=== PATIENT | female | born 1960 ===

== ENCOUNTER 2020-07-09 08:04 | Outpatient (REF) | payer BC, SELFPAY ==
--- NOTE | 2020-07-09 08:12 | MM_ITS ---
EXAMINATION: MM SCREENING DIGITAL BREAST TOMOSYNTHESIS, BILATERAL CLINICAL INFORMATION: Screening. Asymptomatic. The lifetime risk of breast cancer based on the Tyrer-Cuzick Model is 9.4%. COMPARISON: Mammography: July 04, 2019 and studies dating back to April 28, 2011 TECHNIQUE: Digital breast tomosynthesis is performed in both the craniocaudal and mediolateral oblique views along with computer-aided detection (CAD). Synthesized 2D images are generated from the tomosynthesis. FINDINGS: There are scattered areas of fibroglandular density (ACR BI-RADS breast composition Category b). There is a stable parenchymal pattern of the right breast with no new abnormal dominant mass or suspicious grouping of microcalcifications. Within the superior anterior aspect of the left breast approximately 3 cm from the nipple within an area of previous architecture distortion there is a increased density for which a corresponding density on craniocaudal view is not identified however spot compression view in mediolateral oblique projection is recommended. IMPRESSION: Left breast density for further evaluation as described. ASSESSMENT: BI-RADS 0: Incomplete - Need Additional Imaging Evaluation RECOMMENDATION: 1. Additional views of the left breast 2. Targeted ultrasound if warranted after review of the additional views. 3. Radiology department staff will contact the patient for additional imaging. This patient's information was entered into a reminder system with a target due date for their next mammogram.
== END 2020-07-09 08:05 | disposition home or self-care (01) ==
LOC: HO.MAMMO 08:04
PROVIDERS: PCP Internal Medicine; Visit Provider Internal Medicine
DX: Z12.31 Encounter for screening mammogram for malignant neoplasm of breast (principal)
CPT/HCPCS: 77063; 77067

== ENCOUNTER 2020-07-14 15:00 | Outpatient (REF) | payer BC, SELFPAY ==
--- NOTE | 2020-07-14 15:18 | MM_ITS ---
EXAMINATION: MM DIAGNOSTIC DIGITAL BREAST TOMOSYNTHESIS, LEFT CLINICAL INFORMATION: Recall from screening for asymmetric density anterior upper left breast on MLO view. COMPARISON: Mammography: 07/09/2020, 07/04/2019, 06/12/2018, 05/02/2017, 08/07/2015 TECHNIQUE: Digital breast tomosynthesis is performed. 2D images are generated from the tomosynthesis. The following views are obtained: 3-D spot MLO, 3-D ML. FINDINGS: There are scattered areas of fibroglandular density (ACR BI-RADS breast composition Category b). The additional views show fibroglandular tissue similar to multiple prior studies. There is no developing density or interval architectural abnormality or mass. Results are discussed with the patient at time of visit. IMPRESSION: Additional views show fibroglandular tissue similar to multiple prior studies. ASSESSMENT: BI-RADS 1: Negative RECOMMENDATION: Routine annual mammography screening. This patient's information was entered into a reminder system with a target due date for their next mammogram.
== END 2020-07-14 15:01 | disposition home or self-care (01) ==
LOC: HO.MAMMO 15:00
PROVIDERS: PCP Internal Medicine; Visit Provider Internal Medicine
DX: R92.2 Inconclusive mammogram (principal)
CPT/HCPCS: 77065

== ENCOUNTER 2021-02-28 08:01 | Outpatient (REF) | payer BC, SELFPAY ==
[2021-02-28 12:10] LABS: Vitamin D 25-OH Total 42.2 ng/mL (>30)
[2021-02-28 12:15] LABS: Alanine Aminotransferase 53 U/L (0-31); Anion Gap 14 (12-20); Aspartate Amino Transferase 32 U/L (5-31); Blood Urea Nitrogen 15 mg/dL (9-16); Calcium 9.5 mg/dL (8.4-10.2); Carbon Dioxide 26 mmol/L (22-29); Chloride 104 mmol/L (96-108); Cholesterol 169 mg/dL; Estimated Glomerular Filt Rate > 60; Glucose Fasting 134 mg/dL (60-99); HDL Cholesterol 66 mg/dL; LDL Cholesterol Calculated 83 mg/dl; Potassium 4.1 mmol/L (3.3-5.1); Sodium 140 mmol/L (135-145); Triglycerides 101 mg/dL
[2021-02-28 13:13] LABS: Estimated Average Glucose 123 mg/dL; Hemoglobin A1c % 5.9 %
== END 2021-02-28 08:02 | disposition home or self-care (01) ==
LOC: HO.HMGCLDS 08:01
PROVIDERS: PCP Internal Medicine; Visit Provider Internal Medicine
DX: E78.2 Mixed hyperlipidemia (principal); R73.01 Impaired fasting glucose; Z78.0 Asymptomatic menopausal state
CPT/HCPCS: 36415; 80048; 80061; 82306; 83036; 84450; 84460

== ENCOUNTER 2021-07-27 12:20 | Outpatient (REF) | payer BC, SELFPAY ==
--- NOTE | ~2021-07-27 | MM_ITS ---
EXAMINATION: MM SCREENING DIGITAL BREAST TOMOSYNTHESIS, BILATERAL CLINICAL INFORMATION: Screening. Asymptomatic. The lifetime risk of breast cancer based on the Tyrer-Cuzick Model is 8%. COMPARISON: Mammography: 07/14/2020, 07/09/2020, 07/04/2019, 06/12/2018 TECHNIQUE: Digital breast tomosynthesis is performed in both the craniocaudal and mediolateral oblique views along with computer-aided detection (CAD). Synthesized 2D images are generated from the tomosynthesis. FINDINGS: There are scattered areas of fibroglandular density (ACR BI-RADS breast composition Category b). There are no significant masses, abnormal calcifications, or other abnormalities. There is a dermal lesion overlying the anterior upper outer left breast. MM/MM tomosynthesis screening BI IMPRESSION: No mammographic evidence of malignancy. ASSESSMENT: BI-RADS 2: Benign RECOMMENDATION: Routine annual mammography screening. This patient's information was entered into a reminder system with a target due date for their next mammogram.
== END 2021-07-27 12:21 | disposition home or self-care (01) ==
LOC: HO.MAMMO 12:20
PROVIDERS: Visit Provider Internal Medicine
DX: Z12.31 Encounter for screening mammogram for malignant neoplasm of breast (principal)
CPT/HCPCS: 77063; 77067

== ENCOUNTER 2021-08-11 08:13 | Outpatient (REF) | payer BC, SELFPAY ==
--- NOTE | ~2021-08-11 | XR_ITS ---
EXAMINATION: XR KNEE, RIGHT CLINICAL INFORMATION: Pain right knee COMPARISON: None TECHNIQUE: Four views of the right knee. FINDINGS: Bones and soft tissues are normal. There is no acute fracture, dislocation or loose bodies. There is minimal suprapatellar joint effusion suspected. Alignment is anatomic. Joint spaces are well maintained. No abnormal soft tissue calcification. XR/XR knee RT 4V IMPRESSION: Minimal suprapatellar joint effusion suspected. Otherwise unremarkable right knee exam.
== END 2021-08-11 08:14 | disposition home or self-care (01) ==
LOC: HO.HMGCX 08:13
PROVIDERS: PCP Internal Medicine; Visit Provider Internal Medicine
DX: M25.561 Pain in right knee (principal)
CPT/HCPCS: 73564

== ENCOUNTER 2022-01-09 06:12 | Outpatient (REF) | payer BC, SELFPAY ==
[2022-01-09 11:41] LABS: Alanine Aminotransferase 52 U/L (0-31); Anion Gap 13 (12-20); Aspartate Amino Transferase 29 U/L (5-31); Blood Urea Nitrogen 9 mg/dL (9-16); Carbon Dioxide 26 mmol/L (22-29); Chloride 107 mmol/L (96-108); Cholesterol 163 mg/dL; Estimated Glomerular Filt Rate > 60; Glucose Fasting 158 mg/dL (60-99); HDL Cholesterol 62 mg/dL; LDL Cholesterol Calculated 81 mg/dl; Potassium 4.1 mmol/L (3.3-5.1); Sodium 142 mmol/L (135-145); Triglycerides 103 mg/dL
[2022-01-09 12:06] LABS: Vitamin D 25-OH Total 51.1 ng/mL (>30)
== END 2022-01-09 06:13 | disposition home or self-care (01) ==
LOC: HO.HMGCLDS 06:12
PROVIDERS: Visit Provider Internal Medicine
DX: E78.5 Hyperlipidemia, unspecified (principal); I48.0 Paroxysmal atrial fibrillation; I10 Essential (primary) hypertension; Z83.49 Family history of other endocrine, nutritional and metabolic diseases
CPT/HCPCS: 36415; 80048; 80061; 82306; 84443; 84450; 84460

== ENCOUNTER 2022-05-17 08:01 | Outpatient (REF) | payer BC, SELFPAY ==
[2022-05-17 11:32] LABS: Estimated Average Glucose 126 mg/dL
[2022-05-17 12:05] LABS: Alanine Aminotransferase 51 U/L (0-31); Aspartate Amino Transferase 33 U/L (5-31); Cholesterol 138 mg/dL; Glucose Fasting 139 mg/dL (60-99); HDL Cholesterol 56 mg/dL; LDL Cholesterol Calculated 67 mg/dl; Triglycerides 77 mg/dL
== END 2022-05-17 08:02 | disposition home or self-care (01) ==
LOC: HO.HMGCLDS 08:01
PROVIDERS: PCP Internal Medicine; Visit Provider Internal Medicine
DX: E78.5 Hyperlipidemia, unspecified (principal); R73.01 Impaired fasting glucose; E66.9 Obesity, unspecified
CPT/HCPCS: 36415; 80061; 82947; 83036; 84450; 84460

== ENCOUNTER 2022-07-19 07:19 | Day surgery (SDC) | payer BC, SELFPAY ==
[2022-07-13 11:26] VITALS: BMI 36.2
--- NOTE | 2022-07-18 10:11 | HO.ANESPROP2 ---
Documented by User: Sheree Rolle NP 07/18/22 10:12 HPI - Anesthesia Eval Consult details Narrative: 61yo F for Colonoscopy PAF, no anticoag PMFSH Active Problems Active Problems: All Active Problems (Updated 03/01/22 @ 12:14 by Echo Gannon MD) Retinal tear of right eye (Acute) Upper respiratory tract infection (Acute) Posterior vitreous detachment of right eye (Acute) Obesity (Acute) Impaired fasting glucose (Acute) Right knee pain (Acute) Family history of thyroid disease in sister (Acute) Paroxysmal atrial fibrillation (Acute) Dyslipidemia (Acute) Past Medical History Medical History Dyslipidemia Family history of thyroid disease in sister Impaired fasting glucose Obesity Paroxysmal atrial fibrillation Posterior vitreous detachment of right eye Retinal tear of right eye Family History Family History Father No problems noted. Mother No problems noted. Surgical History Surgical History H/O eye surgery Hx of section Hx of wisdom tooth extraction Social History Social History Housing: House Alcohol intake: never Patient Tobacco Use Status: Former Tobacco user Years Smoked: 6 yrs e-Cigarette/Vaping Use: Never Used Second Hand Smoke Exposure: No Use of substances other than those prescribed or required for medical reasons: No Are you DNR?: No Advance Directives: No Advance Directives Information Provided: Yes Advance Directives on File: No service: No Current occupational status: employed Cognitive needs: No Hearing needs: No Vision needs: No Meds Allergies Allergy/AdvReac Type Severity Reaction Status Date / Time No Known Allergies Allergy Verified 05/18/22 13:56 Home Medications Medication Instructions Recorded Confirmed Last Taken Type cholecalciferol (vitamin D3) 50 50 mcg PO DAILY 03/01/21 03/01/21 Unknown History mcg (2,000 unit) capsule flecainide 100 mg tablet 100 mg PO BID 03/01/21 03/01/21 07/19/22 History metoprolol tartrate 50 mg tablet 50 mg PO BID 03/01/21 03/01/21 07/19/22 History cetirizine 10 mg tablet (Zyrtec) 10 mg PO DAILY PRN 05/18/22 Unknown History famotidine 20 mg tablet (Pepcid AC) 20 mg PO BEDTIME 05/18/22 Unknown History Exam Exam Date and Time: July 18, 2022 1011 Height,Weight and Vital Signs: Height 5 ft 2 in Weight 89.811 kg Assessment and Plan Assessment Anesthesia Assessment: Chart Reviewed Documented by User: Dayanara Villaseñor MD 07/19/22 08:26 [facility] Past Medical History Medical History Dyslipidemia Family history of thyroid disease in sister Impaired fasting glucose Obesity Paroxysmal atrial fibrillation Posterior vitreous detachment of right eye Retinal tear of right eye Family History Family History Father No problems noted. Mother No problems noted. Family history of problems with anesthesia: No Surgical History Surgical History H/O eye surgery Hx of section Hx of wisdom tooth extraction History of Problems with Anesthesia: No Social History Social History Housing: House Alcohol intake: never Patient Tobacco Use Status: Former Tobacco user Years Smoked: 6 yrs e-Cigarette/Vaping Use: Never Used Second Hand Smoke Exposure: No Use of substances other than those prescribed or required for medical reasons: No Are you DNR?: No Advance Directives: No Advance Directives Information Provided: Yes Advance Directives on File: No service: No Current occupational status: employed Cognitive needs: No Hearing needs: No Vision needs: No Meds Allergies Allergy/AdvReac Type Severity Reaction Status Date / Time No Known Allergies Allergy Verified 05/18/22 13:56 Home Medications Medication Instructions Recorded Confirmed Last Taken Type cholecalciferol (vitamin D3) 50 50 mcg PO DAILY 03/01/21 03/01/21 Unknown History mcg (2,000 unit) capsule flecainide 100 mg tablet 100 mg PO BID 03/01/21 03/01/21 07/19/22 History metoprolol tartrate 50 mg tablet 50 mg PO BID 03/01/21 03/01/21 07/19/22 History cetirizine 10 mg tablet (Zyrtec) 10 mg PO DAILY PRN 05/18/22 Unknown History famotidine 20 mg tablet (Pepcid AC) 20 mg PO BEDTIME 05/18/22 Unknown History Exam Airway Mallampati Class: II TM Dist: >3cm Neck ROM: Full Heart: rrr Lungs: cta Assessment and Plan Assessment Anesthesia Assessment: Anesthesia Plan Discussed and Chart Reviewed Final Anesthetic Review Family History of Problems with Anesthesia: No History of Problems with Anesthesia: No NPO: Yes ASA Class: II Final Preanesthetic Review: No Changes in Pt Med Stat, Meds/Allgs Chart Reviewed and Consent Obtained/Reviewed Patient Risk: Intermediate Procedure Risk: Intermediate Anesthetic Plan Anesthetic Plan: MAC: Disposition: Standard PACU
[2022-07-19 07:46] VITALS: BP 118/68; PULSE 57; RESP 16; TEMP 36.3; O2SAT 96
--- NOTE | 2022-07-19 08:28 | MHC.SHP ---
Pre-Procedural Eval Section A Date of Service: 07/19/22 Section B Chief Complaint: screening Details of Present Illness: 61y.o F with pAF here for screening colo. Relevant Family History (Specify if Yes): No Present Medications: see Short Stay Collaborative assessment Medical History: Significant History (pAF not on anticoagulation) History of Previous Operations: Relevant previous surgery/procedure and date(s) (H/O eye surgery Hx of section Hx of wisdom tooth extraction) Allergies: Allergies Allergy/AdvReac Type Severity Reaction Status Date / Time No Known Allergies Allergy Verified 05/18/22 13:56 Review of Systems Review of Systems Comment: 10 point ROS negative except as above Exam Exam Comment: Gen appear: No acute distress, well nourished HEENT: no icterus Chest: No overt resp distress Abd: soft, nontender, nondistended Psych: Stable affect, answering questions appropriately Neuro: A/Ox3 noted to move all extremities spontaneously Ext: no peripheral edema Plan Diagnosis/Plan: Unchanged I have reviewed the history and physical and performed a pertinent physical examination on my patient. No changes have occurred unless specified.
--- NOTE | 2022-07-19 09:09 | P.OP_ITS ---
Operative Note Operative Note Date of Service: 07/19/22 Narrative: Procedure: Colonoscopy Indication: Screening Endoscopist: Jenn Peters MD Anesthesia Provider: Dr Dayanara Johnosn Anesthesia type: MAC Instrument: Olympus [id number]-[id number] Consent: Indication, risks vs benefits, and alternatives were discussed with the patient who gave written informed consent to proceed. EKG, pulse, pulse oximetry and blood pressure were monitored throughout the procedure. Please see anesthesia flowsheet. Procedure: The patient was brought to the procedure room and placed in the left lateral decubitus position. IV medications were administered by the anesthesia provider in attendance. A digital rectal exam was performed which was normal. The colonoscope was then inserted through the anus and advanced through the colon to the cecum at 80 cm,and terminal ileum. Mucosa was carefully examined under high definition white light as the instrument was slowly withdrawn in a retrograde panoramic fashion. Retroflexion was performed in ascending colon and rectum. The procedure was not difficult. There were no immediate obvious complications. The quality of the prep was BBPS: 3+3+3 = excellent Withdrawal time 19 minutes. Limitations: No limitations. Findings: Mucosa: Normal to cecum and terminal ileum. Protruding lesions: * Medium internal hemorrhoids without stigmata of recent bleeding. Impression: 1. Normal colon and terminal ileum mucosa 2. Internal hemorrhoids Recommendations: - Repeat colonoscopy in 10 years. - Increase fiber intake - Sitz bath
[2022-07-19 09:15] VITALS: BP 103/58; PULSE 59; RESP 16; TEMP 36.4; O2SAT 96
[2022-07-19 09:30] VITALS: BP 117/69; PULSE 53; RESP 18; TEMP 36.1; O2SAT 96
== END 2022-07-19 10:13 ==
LOC: HO.SSS 07:20
PROVIDERS: PCP Internal Medicine; Visit Provider Internal Medicine
PROC: 0DJD8ZZ Inspection of Lower Intestinal Tract, Via Natural or Artificial Opening Endoscopic (ICD-10-PCS; CPT 45378; principal; 2022-07-19 08:30)
DX: Z12.11 Encounter for screening for malignant neoplasm of colon (principal); K64.8 Other hemorrhoids; I48.0 Paroxysmal atrial fibrillation; E78.5 Hyperlipidemia, unspecified; R73.01 Impaired fasting glucose; Z79.899 Other long term (current) drug therapy; Z87.891 Personal history of nicotine dependence
CPT/HCPCS: 45378

== ENCOUNTER 2022-08-16 07:45 | Outpatient (REF) | payer BC, SELFPAY ==
--- NOTE | ~2022-08-16 | MM_ITS ---
EXAMINATION: MM SCREENING DIGITAL BREAST TOMOSYNTHESIS, BILATERAL CLINICAL INFORMATION: Screening. Asymptomatic. The lifetime risk of breast cancer based on the Tyrer-Cuzick Model is 8%. COMPARISON: Mammography: 07/27/2021, 07/14/2020, 07/09/2020, 07/04/2019 TECHNIQUE: Digital breast tomosynthesis is performed in both the craniocaudal and mediolateral oblique views along with computer-aided detection (CAD). Synthesized 2D images are generated from the tomosynthesis. FINDINGS: There are scattered areas of fibroglandular density (ACR BI-RADS breast composition Category b). There are no significant masses, abnormal calcifications, or other abnormalities. Parenchymal pattern is similar to prior studies. There is no developing density or architectural abnormality. There is a dermal lesion again seen overlying the anterior upper outer left breast. The axilla are unremarkable. No significant changes. MM/MM tomosynthesis screening BI IMPRESSION: No mammographic evidence of malignancy. ASSESSMENT: BI-RADS 2: Benign RECOMMENDATION: Routine annual mammography screening. This patient's information was entered into a reminder system with a target due date for their next mammogram.
== END 2022-08-16 07:46 | disposition home or self-care (01) ==
LOC: HO.MAMMO 07:45
PROVIDERS: PCP Internal Medicine; Visit Provider Internal Medicine
DX: Z12.31 Encounter for screening mammogram for malignant neoplasm of breast (principal)
CPT/HCPCS: 77063; 77067

== ENCOUNTER → 2022-12-20 09:18 | Outpatient (BNVA) | payer BC, SELFPAY | PROVIDERS: PCP Internal Medicine; Visit Provider Nurse Practitioner Family | DX: Z13.89 Encounter for screening for other disorder (principal) ==

== ENCOUNTER 2023-01-23 08:34 | Outpatient (REF) | payer BC, SELFPAY ==
[2023-01-23 11:44] LABS: Estimated Average Glucose 134 mg/dL; Hemoglobin A1c % 6.3 %
[2023-01-23 12:00] LABS: Alanine Aminotransferase 45 U/L (0-31); Anion Gap 11 (12-20); Aspartate Amino Transferase 30 U/L (5-31); Blood Urea Nitrogen 12 mg/dL (9-16); Calcium 9.2 mg/dL (8.4-10.2); Carbon Dioxide 27 mmol/L (22-29); Chloride 103 mmol/L (96-108); Cholesterol 160 mg/dL; Estimated Glomerular Filt Rate > 60; Glucose Fasting 152 mg/dL (60-99); HDL Cholesterol 59 mg/dL; LDL Cholesterol Calculated 83 mg/dl; Potassium 4.1 mmol/L (3.3-5.1); Sodium 137 mmol/L (135-145); Triglycerides 93 mg/dL
== END 2023-01-23 08:35 | disposition home or self-care (01) ==
LOC: HO.HMGCLDS 08:34
PROVIDERS: PCP Internal Medicine; Visit Provider Internal Medicine
DX: E66.9 Obesity, unspecified (principal); R73.01 Impaired fasting glucose; E78.5 Hyperlipidemia, unspecified
CPT/HCPCS: 36415; 80048; 80061; 83036; 84450; 84460

== ENCOUNTER 2023-04-23 07:58 | Outpatient (AMB) | payer BC, SELFPAY ==
--- NOTE | 2023-04-23 07:59 | AM.OFFWIN_ITS ---
Intake Vital Signs 04/23/23 08:02 BP 120/82 Blood Pressure Location Rt brachial Position Sitting Pulse 60 Pulse Source Pulse Oximeter Pulse Oximetry (%) 98 Oxygen Delivery Method Room Air Intake Visit Reasons: EST/dizziness Intake Note: Patient here because she has had a couple dizzy spells yesterday. she states she woke up yesterday dizzy and it sort of went away and then she bent down and got dizzy again. 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 Patient Tobacco Use Status: Former Tobacco user Allergies No Known Allergies Allergy (Verified 04/23/23 08:19) Do you need a note to return to daycare/school/sports/work: No HPI EST/dizziness HPI Details See intake history. PFSH Medical History Dyslipidemia Family history of thyroid disease in sister Impaired fasting glucose Obesity Paroxysmal atrial fibrillation Posterior vitreous detachment of right eye Retinal tear of right eye Surgical History H/O eye surgery Hx of section Hx of colonoscopy Hx of wisdom tooth extraction Family History Father No problems noted. Mother No problems noted. Social History Housing: House Alcohol intake: never Patient Tobacco Use Status: Former Tobacco user Years Smoked: 6 yrs e-Cigarette/Vaping Use: Never Used Second Hand Smoke Exposure: No service: No Current occupational status: employed Cognitive needs: No Hearing needs: No Vision needs: Yes Physical Exam Vital Signs: Last Vital Signs Pulse 60 04/23/23 08:02 BP 120/82 04/23/23 08:02 Pulse Ox 98 04/23/23 08:02 Oxygen Delivery Method Room Air 04/23/23 08:02 Const General: cooperative and healthy appearing Nutritional Appearance: well nourished Orientation/consciousness: patient oriented x3 Limitations: no limitations HEENT Head: Yes normal to inspection Eyes General: appearance normal, both eyes and all related structures Neck Neck: Yes normal visual inspection Chest Chest palpation & inspection: normal palpation of entire chest wall Resp Effort & Inspection: normal respiratory effort Neuro General: patient oriented x3 Assessment & Plan Assessment & Plan (1) Dizziness: Code(s): R42 - Dizziness and giddiness Plan: Self-limiting illness. Patient was reassured that it is not AFib. Coding Level of Care Code Est Pt Level 3 (59664) Diagnoses Dizziness R42
[2023-04-23 08:02] VITALS: BP 120/82; PULSE 60; O2SAT 98
== END 2023-04-23 08:14 | disposition home or self-care (01) ==
PROVIDERS: PCP Internal Medicine; Visit Provider Internal Medicine
DX: R42 Dizziness and giddiness (principal)
CPT/HCPCS: 99213

== ENCOUNTER 2023-07-04 08:45 | Outpatient (AMB) | payer BC, SELFPAY ==
--- NOTE | 2023-07-04 09:29 | AM.OFFWIN_ITS ---
Intake Vital Signs 07/04/23 09:31 Height 5 ft 2 in Weight 198 lb 6 oz BMI 36.3 BP 132/74 Blood Pressure Location Rt brachial Position Sitting Pulse 59 Pulse Source Pulse Oximeter Temp 98.9 F Temp Source Oral Pulse Oximetry (%) 97 Oxygen Delivery Method Room Air Intake Visit Reasons: EP-Lt eye blury vision, headaches Intake Note: Pt is here c/o left eye blurry vision. Pt states she does have retnia but it seemed to be different yesterday. 20/25 RA 20/15 LA Patient Tobacco Use Status: Former Tobacco user Allergies No Known Allergies Allergy (Verified 07/04/23 09:29) Do you need a note to return to daycare/school/sports/work: No HPI HPI Comments History of Present Illness Details This is a 62-year-old female with a past medical history of atrial fibrillation not currently anticoagulated, hyperlipidemia, previous right retinal detachment with residual floaters bilaterally, seasonal allergies and gastroesophageal reflux disease presenting from home for evaluation of a brief loss of vision in her left eye that she describes at the top 10% of her vision that occurred yesterday. Patient states this lasted for less than 3 minutes and now she has absolutely no visual deficits. Patient states that she does have residual floaters but has not experienced any flashes or shadowing and her vision bilaterally. Patient also complains of an intermittent posterior headache that started yesterday for which she was taking Advil. Patient denies having any lightheadedness, nausea, vomiting, abnormal heart rhythm, chest pain or shortness of breath. [facility] Medical History Retinal tear of right eye Posterior vitreous detachment of right eye Obesity Impaired fasting glucose Family history of thyroid disease in sister Paroxysmal atrial fibrillation Dyslipidemia Surgical History H/O eye surgery Hx of section Hx of colonoscopy Hx of wisdom tooth extraction Family History Father No problems noted. Mother No problems noted. Social History Housing: House Alcohol intake: never Patient Tobacco Use Status: Former Tobacco user Years Smoked: 6 yrs e-Cigarette/Vaping Use: Never Used Second Hand Smoke Exposure: No service: No Current occupational status: employed Cognitive needs: No Hearing needs: No Vision needs: Yes Review of Systems Const All systems reviewed & are unremarkable except as noted in HPI and below Denies fatigue, Reports headache(s) and Denies weakness Eyes Reports as per HPI, Reports loss of vision ( top 10% visual field left eye ), Denies seeing flashes and Denies photophobia ENT Reports no additional complaints and Reports headache(s) Resp Reports no additional complaints GI Reports no additional complaints Musc Reports no additional complaints Neuro Reports no additional complaints, Reports headache(s), Reports loss of vision ( top 10% visual field left eye ) and Denies weakness Endo Denies fatigue Physical Exam Vital Signs: Last Vital Signs Temp 98.9 F 07/04/23 09:31 Pulse 59 07/04/23 09:31 BP 132/74 07/04/23 09:31 Pulse Ox 97 07/04/23 09:31 Oxygen Delivery Method Room Air 07/04/23 09:31 BMI result Body Mass Index 36.3 Const General: cooperative, healthy appearing, comfortable and no acute distress Nutritional Appearance: average body habitus Orientation/consciousness: patient oriented x3 Limitations: no limitations HEENT Head: Yes normal to inspection Ears: hearing grossly normal bilaterally, external ears normal and TM's normal bilaterally General nose exam: Normal external nose present Face and sinus: Yes normal facial exam and Yes face symmetric Mouth: Normal oral and palatal mucosa present and oropharynx normal Eyes General: appearance normal, both eyes and all related structures Visual Montejo: normal visual montejo by confrontation Alignment and Position: alignment normal Periorbital: periorbital findings normal Eyelids: Yes eyelids normal Conjunctivae: conjunctivae normal Sclerae: sclerae normal Corneas: corneas normal Pupils: Equal, round and reactive pupils present EOM: EOMs intact bilaterally Direct Ophthalmoscopy: normal light reflex, no photophobia, fundi normal bilaterally and No photophobia Resp Effort & Inspection: normal respiratory effort Auscultation: clear to auscultation bilaterally Neuro General: patient oriented x3 and gait normal Cranial nerves: Yes CN's II-XII intact bilaterally and Yes Equal, round and reactive pupils present Cognition (Neuro): normal cognition Coordination: nahiur-to-tgie test normal Psych Appearance: grossly normal Mental Status: mental status grossly normal Insight: Good insight present (Psych) Judgement: Good judgement present (Psych) Assessment & Plan Assessment & Plan (1) Visual loss one eye NLP; other 20/10-25: Comment: OS visual loss temporary, resolved; will follow up with [facility] as an outpatient. Code(s): H54.40 - Blindness, one eye, unspecified eye (2) Headache: Comment: Tylenol, increase water intake; not present currently. Code(s): R51.9 - Headache, unspecified Coding Level of Care Code Est Pt Level 4 (11885) Diagnoses Visual loss one eye NLP; other 20/10-25 H54.40 Headache R51.9 Time Spent (min) 30
[2023-07-04 09:31] VITALS: BP 132/74; PULSE 59; TEMP 37.2; O2SAT 97; BMI 36.3
== END 2023-07-04 09:56 | disposition home or self-care (01) ==
PROVIDERS: PCP Internal Medicine; Visit Provider Physician Assistant
DX: H54.40 Blindness, one eye, unspecified eye (principal); R51.9 Headache, unspecified
CPT/HCPCS: 99214

== ENCOUNTER 2023-08-01 13:07 | Outpatient (AMB) | payer BC, SELFPAY ==
--- NOTE | 2023-08-01 14:20 | AM.OFFWIN_ITS ---
Intake Vital Signs 08/01/23 14:21 Height 5 ft 2 in Weight 195 lb BMI 35.7 BP 110/70 Blood Pressure Location Rt brachial Position Sitting Pulse 62 Pulse Source Pulse Oximeter Temp 97.8 F Temp Source Temporal Artery Scan Pulse Oximetry (%) 96 Oxygen Delivery Method Room Air Intake Visit Reasons: EP, hip pain Intake Note: Pt is here c/o right hip and leg pain. Pt states no falls or injuries. Patient Tobacco Use Status: Former Tobacco user Allergies No Known Allergies Allergy (Verified 08/01/23 14:54) Medication List - Last Reconciled 08/01/23 by Dallas Leung MD atorvastatin 40 mg PO DAILY cetirizine (Zyrtec) 10 mg PO DAILY PRN cholecalciferol (vitamin D3) 50 mcg PO DAILY famotidine (Acid Controller) 20 mg PO BEDTIME flecainide 100 mg PO BID metoprolol tartrate 50 mg PO BID Do you need a note to return to daycare/school/sports/work: No HPI EP, hip pain HPI Details 62-year-old female presents [facility]. Patient is complaining of pain in the right hip for the past few months. 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 Able to walk and do activities of daily living. Pain radiates to the front of her thigh and into the medial part of her right knee. [facility] Medical History Retinal tear of right eye Posterior vitreous detachment of right eye Obesity Impaired fasting glucose Family history of thyroid disease in sister Paroxysmal atrial fibrillation Dyslipidemia Surgical History H/O eye surgery Hx of section Hx of colonoscopy Hx of wisdom tooth extraction Family History Father No problems noted. Mother No problems noted. Social History Housing: House Alcohol intake: never Patient Tobacco Use Status: Former Tobacco user Years Smoked: 6 yrs e-Cigarette/Vaping Use: Never Used Second Hand Smoke Exposure: No service: No Current occupational status: employed Cognitive needs: No Hearing needs: No Vision needs: Yes Physical Exam Vital Signs: Last Vital Signs Temp 97.8 F 08/01/23 14:21 Pulse 62 08/01/23 14:21 BP 110/70 08/01/23 14:21 Pulse Ox 96 08/01/23 14:21 Oxygen Delivery Method Room Air 08/01/23 14:21 BMI result Body Mass Index 35.7 Extrem Other: Right hip: Full range of motion including flexion extension internal and external rotation. Full adduction and abduction. Assessment & Plan Assessment & Plan (1) Osteoarthritis of right hip: Code(s): M16.11 - Unilateral primary osteoarthritis, right hip Plan X-ray of the hip shows narrow joint space. Extra-strength Tylenol ordered. Physical therapy ordered for hip pain. Orders: Orders XR hip RT w PEL1V Today M16.11 - Unilateral primary osteoarthritis, right hip Coding Level of Care Code Est Pt Level 4 (87329) Diagnoses Osteoarthritis of right hip M16.11
[2023-08-01 14:21] VITALS: BP 110/70; PULSE 62; TEMP 36.6; O2SAT 96; BMI 35.7
== END 2023-08-01 14:57 | disposition home or self-care (01) ==
PROVIDERS: PCP Internal Medicine; Visit Provider Internal Medicine
DX: M16.11 Unilateral primary osteoarthritis, right hip (principal)
CPT/HCPCS: 99214

== ENCOUNTER 2023-08-01 14:39 | Outpatient (REF) | payer BC, SELFPAY ==
--- NOTE | ~2023-08-01 | XR_ITS ---
EXAMINATION: XR HIP, RIGHT CLINICAL INFORMATION: Unilateral primary osteoarthritis of the right hip COMPARISON: None available. TECHNIQUE: Single view pelvis with 2 additional views of the right hip. FINDINGS: Moderate degenerative changes are present in the right hip with narrowing, sclerosis and some osteophyte formation. Narrowing appears most marked medially although I believe the imaging was performed in the supine position. Some minimal changes are present in the left hip. Phleboliths are noted in the pelvis. No fractures or bony destructive. XR/XR hip RT w PEL1V IMPRESSION: Moderate degenerative changes in the right hip.
== END 2023-08-01 14:40 | disposition home or self-care (01) ==
LOC: HO.HMGCX 14:39
PROVIDERS: Visit Provider Internal Medicine
DX: M16.11 Unilateral primary osteoarthritis, right hip (principal)
CPT/HCPCS: 73502

== ENCOUNTER → 2023-08-20 08:00 | Outpatient (BNV) | payer BC, SELFPAY | PROVIDERS: PCP Internal Medicine; Visit Provider Radiology Diagnostic Radiology | DX: Z12.31 Encounter for screening mammogram for malignant neoplasm of breast (principal) | CPT/HCPCS: 77063; 77067 ==

== ENCOUNTER 2023-08-20 08:02 | Outpatient (REF) | payer BC, SELFPAY | END 2023-08-20 08:03 | disposition home or self-care (01) | LOC: HO.MAMMO 08:02 | PROVIDERS: PCP Internal Medicine; Visit Provider Internal Medicine | DX: Z12.31 Encounter for screening mammogram for malignant neoplasm of breast (principal) | CPT/HCPCS: 77063; 77067 ==

== ENCOUNTER 2023-10-01 10:51 | Outpatient (AMB) | payer BC, SELFPAY ==
[2023-10-01 11:24] VITALS: BP 136/84; PULSE 94; O2SAT 97; BMI 36.1
--- NOTE | 2023-10-01 11:24 | MHC.PC.OV ---
Vital Signs 10/01/23 11:24 Height 5 ft 2 in Weight 197 lb 4 oz BMI 36.1 BP 136/84 Blood Pressure Location Rt brachial Position Sitting Pulse 94 Pulse Source Pulse Oximeter Pulse Oximetry (%) 97 Oxygen Delivery Method Room Air Intake Visit Reasons: Annual PE W pap Intake Note: Pt is here for her Annual PE Allergies No Known Allergies Allergy (Verified 10/01/23 12:41) Medication List - Last Reconciled 10/01/23 by Echo Gannon MD atorvastatin 40 mg PO DAILY cholecalciferol (vitamin D3) 50 mcg PO DAILY diltiazem HCl ER 120 mg PO DAILY famotidine (Acid Controller) 20 mg PO BEDTIME flecainide 100 mg PO BID Tobacco use date assessed: 10/01/23 Dental Screening Dental Screen Date: 10/01/23 Did you have a dental visit in the last 12 months?: Yes Did you have a dental problem in the last 6 months where you did not have access to dental care?: No Was dental information given to patient?: Patient has dentist HPI HPI Comments History of Present Illness Details 63-year-old lady here today for physical exam . Has paroxysmal atrial fibrillation currently followed by cardiology at [facility], Dr. Denny , and is currently on flecainide and diltiazem ER. Patient states that she was previously on metoprolol but had to have it stopped as she was getting very tired on the medication peer she currently is being seen at [facility] by Dr. Pelaez for follow-up history of retinal tear a posterior vitreous detachment in right eye. Currently taking atorvastatin for hyperlipidemia, and has been following a strict diet and exercising regularly to control blood sugar as she has prediabetes. She has positive degenerative osteoarthritis and right hip, with pain stiffness in her right hip worse on prolonged ambulation. She is up-to-date with her screening colonoscopy done by Dr. Peters, repeat in 10 years. Up-to-date with her screening mammogram done July 2023 and is due for her Pap smear, last done in 2016 with normal results. Declined getting COVID booster, will get her flu shot at work, has not yet had her shingles vaccine. 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 Mother No problems noted. Social History Housing: House Alcohol intake: never Patient Tobacco Use Status: Former Tobacco user Years Smoked: 6 yrs e-Cigarette/Vaping Use: Never Used Second Hand Smoke Exposure: No service: No Current occupational status: employed Cognitive needs: No Hearing needs: No Vision needs: Yes Female Reproductive History Menstrual Menopause type: natural Questionnaire PHQ-9 Over the last 2 weeks, how often have you been bothered by any of the following problems? 1. Little interest or pleasure in doing things: not at all 2. Feeling down, depressed, or hopeless: not at all 3. Trouble falling or staying asleep, or sleeping too much: not at all 4. Feeling tired or having little energy: not at all 5. Poor appetite or overeating: several days 6. Feeling bad about yourself - or that you are a failure or have let yourself or your family down: several days 7. Trouble concentrating on things, such as reading the newspaper or watching television: not at all 8. Moving or speaking so slowly that other people could have noticed. Or the opposite - being so fidgety or restless that you have been moving around a lot more than usual: not at all 9. Thoughts that you would be better off or of hurting yourself in some way: not at all Total score: 2 Depression Screening Interpretation: Negative Depression Screening Done: Yes 36831 - PHQ-9 Billing: Yes Source: Developed by Drs. Sam Guevara, Estela Aguirre, Catalino Kaplan and colleagues, with an educational dakota from [employer]. Thrive Questionnaire Date Thrive assessed: 10/01/23 I am a: Patient What is your living situation today?: I have a steady place to live Within the past 12 months, did the food you bought not last and you didn't have the money to get more?: Never true Within the past 12 months, did you worry whether your food would run out before you got money to buy more?: Never true Do you have trouble paying for medicines?: No Do you have trouble getting transportation to medical appointments?: No Do you have trouble paying your heating and electricity bill?: No Do you have trouble taking care of your child, family member or friend?: No Do you have trouble with day-to-day activities such as bathing, preparing meals, shopping, managing finances, etc.?: No Are you currently unemployed and looking for a job?: No Are you interested in more education?: No AUDIT C Alcohol Use Questionnaire (AUDIT-C) 1. How often do you have a drink containing alcohol?: Never Total Score: 0 JOSE-7 AMB Questionnaire JOSE-7 Date JOSE - 7 assessed: 10/01/23 Feeling nervous, anxious, or on edge: 1 = Several days Not being able to stop or control worryin = Several days Worrying too much about different things: 1 = Several days Trouble relaxin = Not at all Being so restless that it is hard to sit still: 0 = Not at all Becoming easily annoyed or irritable: 1 = Several days Feeling afraid as if something awful might happen: 0 = Not at all Total JOSE-7 score (0-4 normal; 5-9 mild; 10-14 moderate; 15-21 severe): 4 Source: Developed by Drs. Sam Guevara, Estela Aguirre, Catalino Kaplan and colleagues, with an educational dakota from [employer]. JOSE-7 Assessment Billing JOSE-7 Assessment Tool: JOSE-7 Assessment 38499 Review of Systems Const Reports no additional complaints Eyes Details: Followed by [facility]an[facility] retina Denies change in vision ENT Reports no additional complaints Card Denies chest pain, Denies irregular heart rhythm, Denies lightheadedness and Denies dyspnea Resp Denies cough and Denies dyspnea GI Denies abdominal pain, Denies change in bowel habits and Reports heartburn (with spicy food) Reports no additional complaints Musc Reports no additional complaints Skin/Breast Denies breast swelling, Denies breast pain, Denies breast mass and Denies rash Neuro Reports no additional complaints Psych Reports no additional complaints Endo Denies polyphagia, Denies polydipsia and Denies polyuria Gee/Lymph Denies easy bleeding and Denies easy bruising Aller/Immun Reports seasonal rhinorrhea Physical exam (Primary Care) Vital Signs: Last Vital Signs Pulse 94 10/01/23 11:24 BP 136/84 10/01/23 11:24 Pulse Ox 97 10/01/23 11:24 Oxygen Delivery Method Room Air 10/01/23 11:24 BMI result Body Mass Index 36.1 Tobacco/Smoking Status: Tobacco use Status Tobacco use date assessed 10/01/23 10/01/23 11:32 Patient Tobacco Use Status Former Tobacco user 10/01/23 11:24 e-Cigarette/Vaping Use Never Used 10/01/23 11:24 PHQ-9: PHQ-9 Score PHQ-9: Total score 2 10/01/23 11:41 Depression Screening Interpretation: Negative Thrive Assessment: Date of Thrive Assessment Date Thrive assessed 10/01/23 10/01/23 11:41 Const General: comfortable and no acute distress Orientation/consciousness: patient oriented x3 HENMT Mouth: moist mucous membranes Eyes General: appearance normal, both eyes and all related structures Pupils: Equal, round and reactive pupils present EOM: EOMs intact bilaterally Neck Neck: Yes full ROM, Yes no lymphadenopathy and Yes supple Chest Breast/axilla palpation: normal palpation of the breasts and normal palpation of the axillae Resp Auscultation: clear to auscultation bilaterally Cardio Other: S1 and S2 present , regular rate and rhythm GI Palpation (GI): Soft to palpation, nontender and no guarding Auscultation: normal bowel sounds Other: Attempted to do pelvic exam, Unable to do Pap or exam as patient having difficulty with right hip, unable to abduct right hip joint without pain General: Yes no CVA tenderness External Female Exam: normal external appearance and normal appearance of the urethra Back/Spine/Pelvis Back: no CVA tenderness Neuro General: patient oriented x3, gait normal, moves all extremities, no focal motor deficits and CN's II-XI intact bilaterally Cranial nerves: Yes Equal, round and reactive pupils present Gait exam (Neuro): Normal gait present Extrem Other: Pain elicited on flexion abduction right hip joint General: Yes no joint enlargement, Yes no pedal edema and Yes normal gait Psych Appearance: grossly normal and well kempt Mental Status: mental status grossly normal Speech and movement: Normal speech and movement present Affect: normal affect Thought process: Normal thought process present Assessment and Plan Assessment & Plan (1) Obesity: Code(s): E66.9 - Obesity, unspecified Qualifiers: Obesity type: due to excess calories Obesity classification: adult class 2 (BMI 35 - 39.9) Serious obesity comorbidity presence: with serious comorbidity Body mass index: BMI 36.0-36.9 Qualified Code(s): E66.01 - Morbid (severe) obesity due to excess calories; Z68.36 - Body mass index [BMI] 36.0-36.9, adult Plan: Continue with regular exercise, goes to the gym a tissue to 4 times a week, stressed adherence to recommended diet (2) Impaired fasting glucose: Code(s): R73.01 - Impaired fasting glucose Plan: Your fasting blood sugars were elevated above 100 mg/dL. Impaired glucose metabolism O2 at risk for developing diabetes mellitus type 2, as well as heart attack and stroke later on. Lifestyle changes at just weight loss, healthy eating habits, and regular exercise are important, and can prevent the progression to diabetes. Hemoglobin A1c ordered has fasting glucose level, if still above 6.3 %, will start on metformin (3) Family history of thyroid disease in sister: Code(s): Z83.49 - Family history of other endocrine, nutritional and metabolic diseases Plan: Labs ordered to check thyroid stimulating hormone and free T4 (4) Paroxysmal atrial fibrillation: Comment: Followed by Dr. Denny Code(s): I48.0 - Paroxysmal atrial fibrillation Plan: Currently followed by cardiology,, Dr. Denny, currently on flecainide and diltiazem, most recent consult report requested (5) Dyslipidemia: Code(s): E78.5 - Hyperlipidemia, unspecified Plan: Fasting lipid panel ordered . Continue with atorvastatin 40 mg daily , in addition to adherence to low-cholesterol diet and regular exercise, at least 30 minutes 3 to 4 times a week. Advised patient to make healthy food choices, eat more fruits, vegetables, whole grains, wild caught fish and low-fat dairy. Limit amount of meat and fried or fatty food products, as well as processed foods and fast foods. (6) Asymptomatic postsurgical menopause: Code(s): E89.40 - Asymptomatic postprocedural ovarian failure Plan: Continue taking vitamin-D 3 2000 units daily and continue with regular weight-bearing exercise. Will order a bone density scan to be scheduled together return next mammogram appointment on 08/22/2024 (7) Chronic right hip pain: Code(s): M25.551 - Pain in right hip; G89.29 - Other chronic pain Plan: Referred for physical therapy (8) Osteoarthritis of right hip: Code(s): M16.11 - Unilateral primary osteoarthritis, right hip Qualifiers: Osteoarthritis type: primary Qualified Code(s): M16.11 - Unilateral primary osteoarthritis, right hip Plan: Referred for physical therapy (9) Annual visit for general adult medical examination with abnormal findings: Code(s): Z00.01 - Encounter for general adult medical examination with abnormal findings Plan: Will check appropriate labs. Recommended dental visit every 6 months and currently being followed at [facility]. Take adequate calcium in diet and vitamin-D 3 at 2000 IU per cap once a day, in addition to weight-bearing exercises to help maintain good muscle tone and weight control. Instructed to do self-breast exam, and continue yearly mammogram, currently up-to-date, bone density scan ordered to be scheduled together with her next mammogram this year. Up-to-date with her screening colonoscopy. Pap and pelvic exam of attempted on this visit, but patient unable to abduct right hip joint due to pain. Patient declined getting COVID booster, will get her flu shot at work tomorrow, reminded to get her Shingrix vaccination, currently up-to-date with her Tdap. Orders: Orders TSH reflex Free T4 Today E66.9 - Obesity, unspecified, E78.5 - Hyperlipidemia, unspecified, I48.0 - Paroxysmal atrial fibrillation, R73.01 - Impaired fasting glucose, Z83.49 - Family history of other endocrine, nutritional and metabolic diseases Comprehensive [place]. Panel Fast Today E66.9 - Obesity, unspecified, E78.5 - Hyperlipidemia, unspecified, I48.0 - Paroxysmal atrial fibrillation, R73.01 - Impaired fasting glucose, Z83.49 - Family history of other endocrine, nutritional and metabolic diseases XR DEXA axial skeleton 08/22/24 E89.40 - Asymptomatic postprocedural ovarian failure PT Evaluation and Treatment Today G89.29 - Other chronic pain, M16.11 - Unilateral primary osteoarthritis, right hip, M25.551 - Pain in right hip Vitamin D 25-OH Total Today E66.9 - Obesity, unspecified, E78.5 - Hyperlipidemia, unspecified, I48.0 - Paroxysmal atrial fibrillation, R73.01 - Impaired fasting glucose, Z78.0 - Asymptomatic menopausal state, Z83.49 - Family history of other endocrine, nutritional and metabolic diseases Hemoglobin A1c Today E66.9 - Obesity, unspecified, E78.5 - Hyperlipidemia, unspecified, I48.0 - Paroxysmal atrial fibrillation, R73.01 - Impaired fasting glucose, Z83.49 - Family history of other endocrine, nutritional and metabolic diseases Lipid Panel Today E66.9 - Obesity, unspecified, E78.5 - Hyperlipidemia, unspecified, I48.0 - Paroxysmal atrial fibrillation, R73.01 - Impaired fasting glucose, Z83.49 - Family history of other endocrine, nutritional and metabolic diseases Coding Level of Care Code Est Pt [facility] Care [id number]([id number]) Diagnoses Class 2 severe obesity due to excess calories with serious comorbidity and body mass index (BMI) of 36.0 to 36.9 in adult E66.01; Z68.36 Obesity type: due to excess calories Obesity classification: adult class 2 (BMI 35 - 39.9) Serious obesity comorbidity presence: with serious comorbidity Body mass index: BMI 36.0-36.9 Impaired fasting glucose R73.01 Family history of thyroid disease in sister Z83.49 Paroxysmal atrial fibrillation I48.0 Dyslipidemia E78.5 Asymptomatic postsurgical menopause E89.40 Chronic right hip pain M25.551; G89.29 Primary osteoarthritis of right hip M16.11 Osteoarthritis type: primary Annual visit for general adult medical examination with abnormal findings Z00.01 Additional Codes JOSE-7 Assessment Billing - JOSE-7 Assessment Tool: JOSE-7 Assessment 34904 ([id number])
== END 2023-10-01 12:33 | disposition home or self-care (01) ==
LOC: HO.HMGC 10:51
PROVIDERS: PCP Internal Medicine; Visit Provider Internal Medicine
DX: Z00.00 Encounter for general adult medical examination without abnormal findings (principal); E66.01 Morbid (severe) obesity due to excess calories; I48.0 Paroxysmal atrial fibrillation; Z68.36 Body mass index [BMI] 36.0-36.9, adult; R73.01 Impaired fasting glucose; Z83.49 Family history of other endocrine, nutritional and metabolic diseases; E78.5 Hyperlipidemia, unspecified; E89.40 Asymptomatic postprocedural ovarian failure; M25.551 Pain in right hip; G89.29 Other chronic pain; M16.11 Unilateral primary osteoarthritis, right hip
CPT/HCPCS: 99396

== ENCOUNTER 2023-10-12 11:09 | Outpatient (AMB) | payer BC, SELFPAY ==
[2023-10-12 12:59] VITALS: BP 160/90; PULSE 102; O2SAT 98; BMI 35.5
--- NOTE | 2023-10-12 12:59 | MHC.OFFWIV ---
Intake Vital Signs 10/12/23 12:59 Height 5 ft 2 in Weight 194 lb BMI 35.5 BP 160/90 H Blood Pressure Location Lt brachial Position Sitting Pulse 102 H Pulse Source Pulse Oximeter Pulse Oximetry (%) 98 Oxygen Delivery Method Room Air Intake Visit Reasons: EP Headache ?medication change Intake Note: pt is here today for headache started 2 weeks Patient Tobacco Use Status: Former Tobacco user Allergies No Known Allergies Allergy (Verified 10/12/23 13:00) Do you need a note to return to daycare/school/sports/work: No HPI HPI Comments History of Present Illness Details This is a 63-year-old female with history of paroxysmal atrial fibrillation and hyperlipidemia who presented to the walk-in clinic of intermittent headaches times 2-3 weeks. Patient states she had been on metoprolol for the past 7 years for rate control; however, she was having difficulties sleeping because of the metoprolol so she was switched to diltiazem approximately 3 weeks ago. She states that since then she has been having intermittent diffuse/generalized headaches without any specific triggers. She denies associated slurred speech, facial asymmetry, numbness/weakness/paresthesias of extremities, and visual disturbances. She denies associated photophobia/phonophobia. She states she was diagnosed with ocular migraines in the past. [facility] Medical History Osteoarthritis of right hip Chronic right hip pain Visual loss one eye NLP; other 20/10-25 Retinal tear of right eye Posterior vitreous detachment of right eye Obesity Impaired fasting glucose Family history of thyroid disease in sister Paroxysmal atrial fibrillation Dyslipidemia Surgical History Hx of colonoscopy Hx of wisdom tooth extraction H/O eye surgery Hx of section Family History Father No problems noted. Mother No problems noted. Social History Housing: House Alcohol intake: never Patient Tobacco Use Status: Former Tobacco user Years Smoked: 6 yrs e-Cigarette/Vaping Use: Never Used Second Hand Smoke Exposure: No service: No Current occupational status: employed Cognitive needs: No Hearing needs: No Vision needs: Yes Review of Systems Const All systems reviewed & are unremarkable except as noted in HPI and below Reports no additional complaints Eyes Reports no additional complaints ENT Reports no additional complaints Card Reports no additional complaints Resp Reports no additional complaints GI Reports no additional complaints Reports no additional complaints Musc Reports no additional complaints Skin/Breast Reports system reviewed and no additional complaints, except as documented Neuro Reports no additional complaints Psych Reports no additional complaints Endo Reports no additional complaints Gee/Lymph Reports no additional complaints Aller/Immun Reports no additional complaints Physical Exam Vital Signs: Last Vital Signs Pulse 102 H 10/12/23 12:59 BP 160/90 H 10/12/23 12:59 Pulse Ox 98 10/12/23 12:59 Oxygen Delivery Method Room Air 10/12/23 12:59 BMI result Body Mass Index 35.5 Const Other: Vital signs reviewed. Constitutional: Non-toxic appearing. No acute distress. Well-developed and well-nourished. HEENT: Normocephalic and atraumatic. Tympanic membranes without erythema, edema, or bulging bilaterally. External auditory canals without erythema or edema bilaterally. Moist mucous membranes. No pharyngeal erythema or exudates. Skin: Warm and dry. No rashes or lesions noted. Neck: Full and painless range of motion. No cervical lymphadenopathy. Cardio: Regular rate and rhythm. No murmurs, gallops, or rubs. No lower extremity edema. No JVD. Pulmonary: No respiratory distress. No accessory muscle usage. Clear to auscultation bilaterally without wheezing, crackles, or rhonchi. Gastrointestinal: Soft, nontender, and nondistended in all 4 quadrants. Musculoskeletal: Normal range of motion in joints throughout the body. No deformity or other signs of injury. Neuro: Alert and oriented x4. Cranial nerves 2-12 grossly intact. No focal deficits appreciated. No pronator drift. No ataxia with [id number] bilaterally. 5/5 strength of bilateral upper and lower extremities. Sensation intact to face and bilateral upper and lower extremities. Psych: Normal mood and affect. Office Procedures EKG Details: Normal sinus rhythm at 93 beats per minute, prolonged QTC [id number], Complete Assessment & Plan Assessment & Plan (1) Headache: Code(s): R51.9 - Headache, unspecified Qualifiers: Headache type: unspecified Headache chronicity pattern: episodic headache Intractability: not intractable Qualified Code(s): R51.9 - Headache, unspecified (2) Paroxysmal atrial fibrillation: Comment: Followed by Dr. Denny Code(s): I48.0 - Paroxysmal atrial fibrillation (3) Sinus tachycardia: Code(s): R00.0 - Tachycardia, unspecified Plan This is a 63-year-old female who presented to the office complaining of intermittent/episodic headache without any other associated neurological symptoms for the past 2-3 weeks since changing from metoprolol to diltiazem. On physical examination, the patient is completely neurologically intact and she is actually asymptomatic of any neurological complaints at this time including a headache. Upon initial vital sign evaluation, the patient was hypertensive and tachycardic; however, the patient had just taken her diltiazem so it is possible that it had not taken effect yet. Her vital signs were re-evaluated prior to her leaving in her heart rate was 92 beats per minute and her blood pressure was 138/86. She also underwent an EKG which showed normal sinus rhythm at 93 beats per minute with a mildly prolonged QTC. Patient's headaches could be related to her recent medication change versus possible ocular migraines. At this time, the patient is asymptomatic and she is neurologically intact. I have very low suspicion for ischemic/hemorrhagic CVA given her headaches are intermittent and her neurological exam is within normal limits. I explained to the patient that I do not feel comfortable changing her cardiac medications and the patient is very understandable. She states that she has already called her mental health technician and she is awaiting a call back from them to possibly go back to her metoprolol. The patient was reassured that her EKG was within normal limits in her neurological exam is benign. The patient was extremely appreciative for our help and time. Patient was instructed to proceed directly to the emergency room if she were to develop any neurological symptoms such as facial asymmetry, slurred speech, numbness/weakness/paresthesias on one side of the body or if she were to develop any symptoms of arrhythmia such as chest pain, shortness on breath, lightheadedness/dizziness, or palpitations. The patient verbalizes her understanding and she is in agreement with the plan. Orders: Orders AMB EKG-In Office Today R00.0 - Tachycardia, unspecified Coding Level of Care Code Est Pt Level 3 (65565) Diagnoses Nonintractable episodic headache, unspecified headache type R51.9 Headache type: unspecified Headache chronicity pattern: episodic headache Intractability: not intractable Paroxysmal atrial fibrillation I48.0 Sinus tachycardia R00.0 CPT Codes EKG - CPT: 01237-[id number], Complete ([id number])
== END 2023-10-12 14:14 | disposition home or self-care (01) ==
PROVIDERS: PCP Internal Medicine; Visit Provider Physician Assistant Medical
DX: R51.9 Headache, unspecified (principal); I48.0 Paroxysmal atrial fibrillation; R00.0 Tachycardia, unspecified
CPT/HCPCS: 93000; 99213

== ENCOUNTER 2023-11-15 07:00 | Outpatient (RCR) | payer BC, SELFPAY ==
--- NOTE | 2023-10-10 08:05 | MHC.PT.EP ---
[facility] [place] Office [place] Office [place] Office [address] Jasmyn Wood [address] [phone] F: [phone] F: [phone] F: [phone] F: [phone] Physical Therapy Plan of Care Date of Evaluation: 10/10/23 Date of Surgery: Diagnosis: This is a 63 yo female presenting to skilled PT with a script for pain in R hip. Assessment: This is a 63 yo female presenting to skilled PT with a script for pain in R hip. Patient is complaining of pain in the right hip for many years but this has been getting worse the past 6 months. Pain is located at the R lateral hip and groin and when very bad can radiate to the front of her thigh and into the medial part of her right knee. Pain is described as stiffness. She reports pain with transfers after sitting for some time but then it really depends on the day and activity (some days are worse than others). She has difficulty with LB ADLs and getting down to do household tasks. She takes tylenol at night for pain management, has tried stretching and using pain relief lotions. She saw her PCP recently and when she could not get her legs into the position for an exam she was referred to PT for management (no referral to ortho at this time). 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 Assessment reveals pain that ranges from up to a 6/10 at the worst. Patient demos decreased BLE ROM (R>L), strength of B LE's (R>L), TTP at lateral hip joint, ASIS and impaired posture with forward head and rounded shoulders with antalgic gait pattern due to pain. Based on functional limitations, impaired QOL and pain tolerance patient is a good candidate for skilled PT 2x/wk for 4wks. Frequency and Duration: The patient will be seen 2x/wk for 4wks Short Term Goals: Pt will demonstrate improved postural awareness and understanding of core engagement with supine and standing tasks without cues throughout session to improve overall back and hip safety in 2 weeks. Pt will continue to reinforce precautions, sitting, standing and ADL modifications with proper body mechanics in 2 wks. Pt will be I in HEP in 2 wks Machine Tool Mechanic Goals: Patient will report 75% improvement in balance and strength of LLE in 4 wks Patient will improve LEFs by 10 points in 4wks Patient will demo WFL AROM of B LE in 4wks Patient will demo proper squat and lift techniques without increase in pain in 4wks Treatment Plan: Modalities to reduce pain, spasms and effusion. Manual therapy to restore motion and function. Therapeutic exercise to improve strength and flexibility. Neuromuscular re-education for posture and balance. Therapeutic activities to return to functional activities of daily living. Electronically signed by: Beronica Sinclair, PT Please sign and return to therapist. Thank you for your referral.
--- NOTE | 2023-12-13 09:21 | MHC.PT.DC ---
[facility] [place] Office [place] Office [place] Office [address] Jasmyn Wood [address] [phone] F: [phone] F: [phone] F: [phone] F: [phone] Physical Therapy Discharge Report Diagnosis: This is a 63 yo female presenting to skilled PT with a script for pain in R hip. Date of Surgery: Date of Evaluation: 10/10/23 Date of Discharge: 12/13/23 Treatments to Date: 10 Cancellations to Date: 0 No Shows to Date: 0 Discharge Status: Achieved Goals Improved Function Independent with HEP Discharge Summary: 11/15/23: Patient's last day today, she has an HEP that she is I with and ready for DC at this time. She has improved her function, ROM, strength and pain however continues to have lingering symptoms depending on the day. She has plans to speak with an ortho surgeon. I will DC her chart in 30 days if patient does not return for further tx. Electronically signed by: Beronica Sinclair PT Please sign and return to therapist. Thank you for your referral.
== END 2023-12-13 09:22 | disposition home or self-care (01) ==
LOC: HO.PTCHIC 07:00
PROVIDERS: PCP Internal Medicine; Visit Provider Internal Medicine
DX: M16.11 Unilateral primary osteoarthritis, right hip (principal); G89.29 Other chronic pain
CPT/HCPCS: 97110; 97162

== ENCOUNTER 2024-03-07 11:01 | Outpatient (AMB) | payer BC, SELFPAY ==
--- NOTE | 2024-03-07 11:10 | A.OFFVIS_ITS ---
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 She has tried physical therapy which has improved her symptoms mildly. She has trouble with gait initiation, she feels extremely stiff when getting up and has trouble taking her first few steps due to stiffness. She is mostly complaining of bilateral knee pain, the pain alternates between the knees. 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 Her pain is constant and she has modified her activities significantly to reduce the pain. She describes posterior, lateral and anterior right hip pain. She no longer rides a stationary bike or walks on uneven ground. She walks on flat surfaces only. Her pain is tolerable but she is always aware of the tightness and lack of motion in her right hip. [facility] Medical History Osteoarthritis of right hip Chronic right hip pain Visual loss one eye NLP; other 20/10-25 Retinal tear of right eye Posterior vitreous detachment of right eye Obesity Impaired fasting glucose Family history of thyroid disease in sister Paroxysmal atrial fibrillation Dyslipidemia Surgical History Hx of colonoscopy Hx of wisdom tooth extraction H/O eye surgery Hx of section Family History Father No problems noted. Mother No problems noted. 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 Resp Other: No audible wheezing Effort & Inspection: normal respiratory effort Back/Spine/Pelvis Cervical Spine: normal cervical lordosis Skin General skin exam: no rashes or lesions noted Neuro General: no focal motor deficits Extrem Other: 90 deg flexion Minimal rotation right hip and FADIR reproduces groin pain Mild Trendelenberg gait on the right Psych Appearance: grossly normal and well kempt Mental Status: mental status grossly normal Speech and movement: Normal speech and movement present Affect: normal affect Attitude: cooperative Results Reviewed Results Reviewed: I personally reviewed relevant radiographs. Moderate to severe right hip OA Assessment & Plan Assessment & Plan (1) Osteoarthritis of right hip: Code(s): M16.11 - Unilateral primary osteoarthritis, right hip Category: Medical Qualifiers: Osteoarthritis type: primary Qualified Code(s): M16.11 - Unilateral primary osteoarthritis, right hip Plan: OA of the right hip. I recommend arthroplasty given the extent of activity modifications that she has made in order to function. She understands this and we had a long discussion regarding the risks, benefits and alternatives to surgery. We discussed approaches and down time. She is hesitant to undergo surgery. She can contact me if she would like to pursue this. We also discussed alternative such as injections. Again she will let me know if I can assist her. Coding Level of Care Code New Pt Level 4 (74257) Diagnoses Primary osteoarthritis of right hip M16.11 Osteoarthritis type: primary
[2024-03-07 11:12] VITALS: BMI 35.5
== END 2024-03-07 13:24 | disposition home or self-care (01) ==
PROVIDERS: PCP Internal Medicine; Visit Provider Orthopaedic Surgery
DX: M16.11 Unilateral primary osteoarthritis, right hip (principal)
CPT/HCPCS: 99203

== ENCOUNTER → 2024-03-07 11:01 | Outpatient (BNVA) | payer BC, SELFPAY | PROVIDERS: PCP Internal Medicine; Visit Provider Orthopaedic Surgery ==

== ENCOUNTER 2024-06-04 07:46 | Outpatient (REF) | payer BC, SELFPAY ==
[2024-06-04 10:35] LABS: Alanine Aminotransferase 49 U/L (0-31); Albumin Level 4.1 g/dL (3.5-5.0); Alkaline Phosphatase 74 U/L (39-117); Anion Gap 12 (12-20); Aspartate Amino Transferase 30 U/L (5-31); Bilirubin Total 0.6 mg/dL (0.0-1.0); Blood Urea Nitrogen 12 mg/dL (9-16); Calcium 9.3 mg/dL (8.4-10.2); Carbon Dioxide 25 mmol/L (22-29); Chloride 106 mmol/L (96-108); Cholesterol 148 mg/dL (<200); Estimated Glomerular Filt Rate > 60; Glucose Fasting 155 mg/dL (60-99); HDL Cholesterol 61 mg/dL (>40); LDL Cholesterol Calculated 73 mg/dL (<100); Sodium 139 mmol/L (135-145); Total Protein 6.4 g/dL (6.5-8.0); Triglycerides 71 mg/dL (<150)
[2024-06-04 10:39] LABS: TSH reflex Free T4 1.47 uIU/mL (0.32-4.0)
[2024-06-04 10:56] LABS: Estimated Average Glucose 134 mg/dL; Hemoglobin A1C 150.6874 umol/L; Hemoglobin A1c % 6.3 % (<6.0)
== END 2024-06-04 07:47 | disposition home or self-care (01) ==
LOC: HO.HMGCLDS 07:46
PROVIDERS: PCP Internal Medicine; Visit Provider Internal Medicine
DX: E66.9 Obesity, unspecified (principal); R73.01 Impaired fasting glucose; Z83.49 Family history of other endocrine, nutritional and metabolic diseases; I48.0 Paroxysmal atrial fibrillation; E78.5 Hyperlipidemia, unspecified; Z78.0 Asymptomatic menopausal state
CPT/HCPCS: 36415; 80053; 80061; 82306; 83036; 84443

== ENCOUNTER 2024-06-05 13:32 | Outpatient (AMB) | payer BC, SELFPAY ==
--- NOTE | 2024-06-05 13:36 | A.OFFPC_ITS ---
Vital Signs 06/05/24 13:38 Height 5 ft 2 in Weight 190 lb BMI 34.7 BP 132/80 Blood Pressure Location Lt brachial Position Sitting Pulse 62 Pulse Source Pulse Oximeter Pulse Oximetry (%) 96 Intake Visit Reasons: 6 month F/U Intake Note: Pt is here today for his 6mo. f/u Allergies No Known Allergies Allergy (Verified 06/05/24 13:47) Medication List - Last Reconciled 06/05/24 by Echo Gannon MD atorvastatin 40 mg PO DAILY cholecalciferol (vitamin D3) 50 mcg PO DAILY famotidine (Acid Controller) 20 mg PO BEDTIME flecainide 100 mg PO BID meloxicam 15 mg PO DAILY metoprolol tartrate 50 mg PO BID Tobacco use date assessed: 06/05/24 Dental Screening Dental Screen Date: 06/05/24 Did you have a dental visit in the last 12 months?: Yes Did you have a dental problem in the last 6 months where you did not have access to dental care?: No Was dental information given to patient?: Patient has dentist HPI 6 month F/U HPI Details 63-year-old lady with prediabetes, hyper lipidemia, paroxysmal atrial fibrillation currently on flecainide and metoprolol tartrate 50 mg 1 tablet twice a day, here today for a follow-up. Has been compliant with her medication, follows recommended diet, but unable to exercise much due to or stroke arthritis mainly in her right hip. Has moderate degenerative joint disease right hip, is scheduled to have right hip replacement with Dr. Carrillo on 06/27/2024. Has been feeling well, apart from pain in her right hip joint. Had recent fasting labs which showed a hemoglobin A1c at 6.3%, normal lipids, electrolytes and renal function. [facility] Medical History Osteoarthritis of right hip Chronic right hip pain Visual loss one eye NLP; other 20/10-25 Retinal tear of right eye Posterior vitreous detachment of right eye Obesity Impaired fasting glucose Family history of thyroid disease in sister Paroxysmal atrial fibrillation Dyslipidemia Surgical History Hx of colonoscopy Hx of wisdom tooth extraction H/O eye surgery Hx of section Family History Father No problems noted. Mother No problems noted. 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 Depression Screening Interpretation: Negative Depression Screening Done: Yes Source: Developed by Drs. Sam Guevara, Estela Aguirre, Catalino Kaplan and colleagues, with an educational dakota from [employer]. Thrive Questionnaire Date Thrive assessed: 10/01/23 I am a: Patient What is your living situation today?: I choose not to answer this question Within the past 12 months, did the food you bought not last and you didn't have the money to get more?: I choose not to answer this question Within the past 12 months, did you worry whether your food would run out before you got money to buy more?: I choose not to answer this question Do you have trouble paying for medicines?: I choose not to answer this question Do you have trouble getting transportation to medical appointments?: I choose not to answer this question Do you have trouble paying your heating and electricity bill?: I choose not to answer this question Do you have trouble taking care of your child, family member or friend?: I choose not to answer this question Do you have trouble with day-to-day activities such as bathing, preparing meals, shopping, managing finances, etc.?: I choose not to answer this question Are you currently unemployed and looking for a job?: I choose not to answer this question Are you interested in more education?: I choose not to answer this question Please select the resources that you would like help with: None Currently or been in a relationship where the following occur: I choose not to answer THRIVE Score: 0 AUDIT C Alcohol Use Questionnaire (AUDIT-C) 1. How often do you have a drink containing alcohol?: Never Total Score: 0 JOSE-7 AMB Questionnaire JOSE-7 Date JOSE - 7 assessed: 10/01/23 Feeling nervous, anxious, or on edge: 0 = Not at all Not being able to stop or control worryin = Not at all Worrying too much about different things: 0 = Not at all Trouble relaxin = Not at all Being so restless that it is hard to sit still: 0 = Not at all Becoming easily annoyed or irritable: 0 = Not at all Feeling afraid as if something awful might happen: 0 = Not at all Total JOSE-7 score (0-4 normal; 5-9 mild; 10-14 moderate; 15-21 severe): 0 Source: Developed by Drs. Sam Guevara, Estela Aguirre, Catalino Kaplan and colleagues, with an educational dakota from [employer]. Review of Systems Const All systems reviewed & are unremarkable except as noted in HPI and below Reports no additional complaints Eyes Reports no additional complaints ENT Reports no additional complaints Card Reports no additional complaints Resp Reports no additional complaints GI Reports no additional complaints Reports no additional complaints Musc Reports as per HPI Skin/Breast Reports system reviewed and no additional complaints, except as documented Neuro Reports no additional complaints Psych Reports no additional complaints Endo Reports no additional complaints Gee/Lymph Reports no additional complaints Aller/Immun Reports no additional complaints Physical exam (Primary Care) Vital Signs: Last Vital Signs Pulse 62 06/05/24 13:38 BP 132/80 06/05/24 13:38 Pulse Ox 96 06/05/24 13:38 BMI result Body Mass Index 34.7 Tobacco/Smoking Status: Tobacco use Status Tobacco use date assessed 06/05/24 06/05/24 13:37 Patient Tobacco Use Status Former Tobacco user 06/05/24 13:36 e-Cigarette/Vaping Use Never Used 06/05/24 13:36 Depression Screening Interpretation: Negative Thrive Assessment: Date of Thrive Assessment Date Thrive assessed 10/01/23 06/05/24 13:36 Currently or been in a relationship where the following occur: I choose not to answer Const General: comfortable and no acute distress Orientation/consciousness: patient oriented x3 HENMT Mouth: moist mucous membranes Eyes General: appearance normal, both eyes and all related structures Pupils: Equal, round and reactive pupils present EOM: EOMs intact bilaterally Neck Neck: Yes full ROM, Yes no lymphadenopathy and Yes supple Resp Auscultation: clear to auscultation bilaterally Cardio Other: S1 and S2 present , regular rate and rhythm GI Palpation (GI): Soft to palpation, nontender and no guarding Auscultation: normal bowel sounds Neuro General: patient oriented x3, gait normal, moves all extremities, no focal motor deficits and CN's II-XI intact bilaterally Cranial nerves: Yes Equal, round and reactive pupils present Gait exam (Neuro): Normal gait present Extrem Other: Pain elicited on flexion abduction right hip joint General: Yes no joint enlargement, Yes no pedal edema and Yes normal gait Psych Appearance: grossly normal and well kempt Mental Status: mental status grossly normal Speech and movement: Normal speech and movement present Affect: normal affect Thought process: Normal thought process present Results Reviewed Results Reviewed: Laboratory Tests 06/04/24 07:58 Estimat Average Glucose 134 Hemoglobin A1c % 6.3 H Name: Shawnee Love Age/Sex: 63/F : 1960 Unit#: [id number] Attend Dr: Echo Gannon MD Re06/04/24 Status: DEP REF Location: [facility] Disch: SPEC : [id number] AYAD: 06/04/24 STATUS: COMP REQ : [id number] RECD: 06/04/[address]: Echo Gannon MD COMP: 06/04/24-9 ENTERED: 06/04/[address]: ORDERED: CMP Fast, Lipid Panel, Vitamin D 25-OH, TSH Rflx Test Result Flag Reference Sodium 139 135-145 mmol/L Potassium 4.0 3.3-5.1 mmol/L CL 106 96-108 mmol/L CO2 25 22-29 mmol/L Gap 12 12-20 BUN 12 9-16 mg/dL Creat 0.81 0.5-1.4 mg/dL EGFR > 60 NOTE: For -[place] individuals, multiply the result by 1.210. Chronic Kidney Disease: Estimated GFR < 60 mL/min/1.73m2 Severe Kidney Disease: Estimated GFR < 15 mL/min/1.73m2 FBS 155 H 60-99 mg/dL A fasting glucose of 126 mg/dl or greater on more than one occasion is considered diagnostic of diabetes. CA 9.3 8.4-10.2 mg/dL Total Bili 0.6 0.0-1.0 mg/dL AST (GOT) 30 5-31 U/L ALT (GPT) 49 H 0-31 U/L Protein, Total 6.4 L 6.5-8.0 g/dL Alb 4.1 3.5-5.0 g/dL Triglyceride 71 <150 mg/dL Desirable Triglyceride: less than 150 mg/dL Borderline High Triglyceride 150-199 mg/dL High Triglyceride: 200-499 mg/dL Very High Triglyceride: greater than or equal to 5OO mg/dL Cholesterol 148 <200 mg/dL Desirable Cholesterol: less than 200 mg/dL Borderline High Cholesterol: 200-239 mg/dL High Cholesterol: greater than 239 mg/dL LDL Calculated 73 <100 mg/dL Desirable LDL: less than 100 mg/dL Near Optimal/Above Optimal LDL: 110-129 mg/dL Borderline High LDL: 130-159 mg/dL High LDL: 160-189 mg/dL Very High LDL: greater than or equal to 190 mg/dL HDL 61 >40 mg/dL Desirable HDL: greater than 40 mg/dL Note: This HDL assay may give artificially low results in patients with liver disease. Alk Phos 74 39-117 U/L Vit D 25-OH Tot 67.0 >30 ng/mL Health Based Reference Values* < 20 ng/mL Deficient 20-30 ng/mL Insufficient > 30 ng/mL Sufficient Assessment and Plan Assessment & Plan (1) Osteoarthritis of right hip: Code(s): M16.11 - Unilateral primary osteoarthritis, right hip Qualifiers: Osteoarthritis type: primary Qualified Code(s): M16.11 - Unilateral primary osteoarthritis, right hip Plan: Currently followed by [facility], scheduled for right hip replacement on 06/27/2024 (2) Impaired fasting glucose: Code(s): R73.01 - Impaired fasting glucose Plan: Your previous fasting blood sugars were elevated above 100 mg/dL but latest hemoglobin A1c is at 6.3%.. Impaired glucose metabolism increases the risk for developing diabetes mellitus type 2, as well as heart attack and stroke later on. Lifestyle changes that promotes weight loss, healthy eating habits, and regular exercise are important, and can prevent the progression to diabetes. 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 Denny Code(s): I48.0 - Paroxysmal atrial fibrillation Plan: Followed by cardiology currently on flecainide and metoprolol tartrate (4) Dyslipidemia: Code(s): E78.5 - Hyperlipidemia, unspecified Plan: Reviewed recent fasting lipid profile with patient with levels within normal limits . Continue atorvastatin 40 mg daily , in addition to adherence to low-cholesterol diet and regular exercise, at least 30 minutes 3 to 4 times a week. Advised patient to make healthy food choices, eat more fruits, vegetables, whole grains, wild caught fish and low-fat dairy. Limit amount of meat and fried or fatty food products, as well as processed foods and fast foods. Follow-up scheduled with repeat fasting lipid panel in 4 months. Orders: Orders Lipid Panel 09/24/24 E78.5 - Hyperlipidemia, unspecified, R73.01 - Impaired fasting glucose, Z78.0 - Asymptomatic menopausal state Vitamin D 25-OH Total 09/24/24 E78.5 - Hyperlipidemia, unspecified, R73.01 - Impaired fasting glucose, Z78.0 - Asymptomatic menopausal state Alanine Aminotransferase 09/24/24 E78.5 - Hyperlipidemia, unspecified, R73.01 - Impaired fasting glucose, Z78.0 - Asymptomatic menopausal state Aspartate Amino Transferase 09/24/24 E78.5 - Hyperlipidemia, unspecified, R73.01 - Impaired fasting glucose, Z78.0 - Asymptomatic menopausal state Hemoglobin A1c 09/24/24 E78.5 - Hyperlipidemia, unspecified, R73.01 - Impaired fasting glucose, Z78.0 - Asymptomatic menopausal state Basic Metabolic Panel Fasting 09/24/24 E78.5 - Hyperlipidemia, unspecified, R73.01 - Impaired fasting glucose, Z78.0 - Asymptomatic menopausal state Coding Level of Care Code Est Pt Level 4 (16738) Complex EM visit Add On G2211 Diagnoses Primary osteoarthritis of right hip M16.11 Osteoarthritis type: primary Impaired fasting glucose R73.01 Paroxysmal atrial fibrillation I48.0 Dyslipidemia E78.5
[2024-06-05 13:38] VITALS: BP 132/80; PULSE 62; O2SAT 96; BMI 34.7
== END 2024-06-05 14:49 | disposition home or self-care (01) ==
PROVIDERS: PCP Internal Medicine; Visit Provider Internal Medicine
DX: M16.11 Unilateral primary osteoarthritis, right hip (principal); R73.01 Impaired fasting glucose; I48.0 Paroxysmal atrial fibrillation; E78.5 Hyperlipidemia, unspecified
CPT/HCPCS: 99214

== ENCOUNTER → 2024-06-13 10:00 | Outpatient (BNVA) | payer BC, SELFPAY | PROVIDERS: PCP Internal Medicine ==

== ENCOUNTER 2024-07-25 08:01 | Outpatient (REF) | payer BC, SELFPAY ==
--- NOTE | ~2024-07-25 | MM_ITS ---
EXAMINATION: BONE DENSITOMETRY CLINICAL INDICATION: Asymptomatic postprocedural ovarian failure. COMPARISON: This is the patient's baseline examination. TECHNIQUE: Using a [employer] DXA System (software version: 13.1) manufactured by [employer], dual-energy x-ray absorptiometry was performed of the lumbar spine and left hip. The images are of good technical quality. Summary results are attached. FINDINGS: LEFT FEMUR, NECK: BMD 0.903 g/cm2, Z-score -0.1, T-score -1.0, normal. LEFT FEMUR, TOTAL: BMD 0.960 g/cm2, Z-score 0.1, T-score -0.4, normal. AP SPINE L1-L4: BMD 1.110 g/cm2, Z-score 0.0, T-score -0.6, normal. IDENTIFIED RISK FACTORS: Menopause. HISTORY OF FRACTURE: None listed. MEDICATIONS: Vitamin D. MM/XR DEXA axial skeleton IMPRESSION: 1. DIAGNOSIS: Normal bone density based on the lowest T-score value of -1.0 in the femoral neck applying World Health Organization criteria. 2. 10-YEAR FRACTURE RISK PREDICTION, FRAX: According to the guidelines, FRAX calculation should only be performed on patients in the osteopenia bone density category. Therefore, FRAX was not performed on this patient. 3. Treatment Recommendations: NOF guidelines recommend consideration for treatment in postmenopausal women and men age 50 and older presenting with the following: -A hip or vertebral (clinical or morphometric) fracture. -T-score less than or equal to -2.5 at the femoral neck or spine after appropriate evaluation to exclude secondary causes. -Low bone mass at the hip or spine and a 10-year fracture probability by FRAX of greater than or equal to 3% for hip fracture or greater than or equal to 20% for major osteoporotic fracture based on the [place] adapted WHO algorithm. 4. Other Recommendations: All treatment decisions require clinical judgment and consideration of individual patient factors, including patient preferences, comorbidities, previous drug use, risk factors not captured in the FRAX model (e.g. frailty, falls, vitamin D deficiency, increased bone turnover, interval significant decline in bone density) and possible under or overestimation of fracture risk by FRAX. FUTURE SCAN RECOMMENDATION: People with diagnosed cases of osteoporosis or at high risk for fracture should have regular bone mineral density tests. For patients eligible for Medicare, routine testing is allowed once every 2 years. The testing frequency can be increased to one year for patients who have rapidly progressing disease, those who are receiving or discontinuing medical therapy to restore bone mass, or have additional risk factors. Electronically signed by: Dwight Sims MD 07/25/2024 12:22 PM EDT
== END 2024-07-25 08:02 | disposition home or self-care (01) ==
LOC: HO.MAMMO 08:01
PROVIDERS: PCP Internal Medicine; Visit Provider Internal Medicine
DX: E89.40 Asymptomatic postprocedural ovarian failure (principal)
CPT/HCPCS: 77080

== ENCOUNTER 2024-09-08 07:18 | Outpatient (REF) | payer BC, SELFPAY | END 2024-09-08 07:19 | disposition home or self-care (01) | LOC: HO.MAMMO 07:18 | PROVIDERS: PCP Internal Medicine; Visit Provider Internal Medicine | DX: Z12.31 Encounter for screening mammogram for malignant neoplasm of breast (principal) | CPT/HCPCS: 77063; 77067 ==

== ENCOUNTER → 2024-09-08 07:30 | Outpatient (BNV) | payer BC, SELFPAY | PROVIDERS: PCP Internal Medicine; Visit Provider Internal Medicine | DX: Z12.31 Encounter for screening mammogram for malignant neoplasm of breast (principal) | CPT/HCPCS: 77063; 77067 ==

== ENCOUNTER 2024-12-03 09:40 | Outpatient (AMB) | payer BC, SELFPAY ==
[2024-12-03 09:43] VITALS: BP 110/74; PULSE 63; RESP 15; TEMP 36.7; O2SAT 97; BMI 34.2
--- NOTE | 2024-12-03 09:43 | MHC.PC.OV ---
Vital Signs 12/03/24 09:43 Height 5 ft 2 in Weight 187 lb BMI 34.2 BP 110/74 Blood Pressure Location Rt brachial Position Sitting Respiration 15 Pulse 63 Pulse Source Pulse Oximeter Temp 98.1 F Temp Source Oral Pulse Oximetry (%) 97 Oxygen Delivery Method Room Air Intake Visit Reasons: PE Intake Note: Pt is here today for her PE: Last mammogram 09/08/24, papsmear 2019, colonoscopy 07/19/22, bone density scan 07/25/24 Allergies No Known Allergies Allergy (Verified 12/03/24 10:27) Medication List - Last Reconciled 12/03/24 by Echo Gannon MD atorvastatin 40 mg PO DAILY cholecalciferol (vitamin D3) 50 mcg PO DAILY famotidine (Acid Controller) 20 mg PO BEDTIME flecainide 100 mg PO BID metoprolol tartrate 50 mg PO BID Tobacco use date assessed: 12/03/24 Dental Screening Dental Screen Date: 12/03/24 Did you have a dental visit in the last 12 months?: Yes Did you have a dental problem in the last 6 months where you did not have access to dental care?: No Was dental information given to patient?: Patient has dentist HPI PE HPI Details 64-year-old lady with history of hyperlipidemia, osteoarthritis in right hip, paroxysmal atrial fibrillation currently on flecainide and metoprolol tartrate, followed by Dr. Denny, history of retinal tear in her right eye, currently followed by [facility] yearly, has obesity and impaired fasting glucose, here today for her physical exam. She has been feeling well, with no complaints at present time. She canceled her right hip surgery as she states that her right hip pain is controlled with taking Tylenol arthritis, seldom needs to take meloxicam . Has been trying to lose weight through diet and exercise but admits to being inconsistent with her diet and exercise regimen [facility] Medical History Osteoarthritis of right hip Chronic right hip pain Visual loss one eye NLP; other 20/10-25 Retinal tear of right eye Posterior vitreous detachment of right eye Obesity Impaired fasting glucose Family history of thyroid disease in sister Paroxysmal atrial fibrillation Dyslipidemia Surgical History Hx of colonoscopy Hx of wisdom tooth extraction H/O eye surgery Hx of section Family History Father No problems noted. Mother No problems noted. 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 1. Little interest or pleasure in doing things: not at all 2. Feeling down, depressed, or hopeless: not at all 3. Trouble falling or staying asleep, or sleeping too much: not at all 4. Feeling tired or having little energy: not at all 5. Poor appetite or overeating: not at all 6. Feeling bad about yourself - or that you are a failure or have let yourself or your family down: not at all 7. Trouble concentrating on things, such as reading the newspaper or watching television: not at all 8. Moving or speaking so slowly that other people could have noticed. Or the opposite - being so fidgety or restless that you have been moving around a lot more than usual: not at all 9. Thoughts that you would be better off or of hurting yourself in some way: not at all Total score: 0 Depression Screening Interpretation: Negative Depression Screening Done: Yes 87688 - PHQ-9 Billing: Yes Source: Developed by Drs. Sam Guevara, Estela Aguirre, Catalino Kaplan and colleagues, with an educational dakota from [employer]. Thrive Questionnaire Date Thrive assessed: 12/03/24 I am a: Patient What is your living situation today?: I choose not to answer this question Within the past 12 months, did the food you bought not last and you didn't have the money to get more?: I choose not to answer this question Within the past 12 months, did you worry whether your food would run out before you got money to buy more?: I choose not to answer this question Do you have trouble paying for medicines?: I choose not to answer this question Do you have trouble getting transportation to medical appointments?: I choose not to answer this question Do you have trouble paying your heating and electricity bill?: I choose not to answer this question Do you have trouble taking care of your child, family member or friend?: I choose not to answer this question Do you have trouble with day-to-day activities such as bathing, preparing meals, shopping, managing finances, etc.?: I choose not to answer this question Are you currently unemployed and looking for a job?: I choose not to answer this question Are you interested in more education?: I choose not to answer this question Please select the resources that you would like help with: None Currently or been in a relationship where the following occur: I choose not to answer THRIVE Score: 0 AUDIT C Alcohol Use Questionnaire (AUDIT-C) 1. How often do you have a drink containing alcohol?: Never Total Score: 0 JOSE-7 AMB Questionnaire JOSE-7 Date JOSE - 7 assessed: 12/03/24 Feeling nervous, anxious, or on edge: 0 = Not at all Not being able to stop or control worryin = Not at all Worrying too much about different things: 0 = Not at all Trouble relaxin = Not at all Being so restless that it is hard to sit still: 0 = Not at all Becoming easily annoyed or irritable: 0 = Not at all Feeling afraid as if something awful might happen: 0 = Not at all Total JOSE-7 score (0-4 normal; 5-9 mild; 10-14 moderate; 15-21 severe): 0 Source: Developed by Drs. Sam Guevara, Estela Aguirre, Catalino Kaplan and colleagues, with an educational dakota from [employer]. JOSE-7 Assessment Billing JOSE-7 Assessment Tool: JOSE-7 Assessment 50065 Review of Systems Const All systems reviewed & are unremarkable except as noted in HPI and below Reports no additional complaints Eyes Details: Gets yearly eye exam at [facility] Reports no additional complaints ENT Details: Dental prophylaxis every 6 months Reports no additional complaints Card Reports no additional complaints Resp Reports no additional complaints GI Reports no additional complaints Reports no additional complaints Musc Reports as per HPI Skin/Breast Reports system reviewed and no additional complaints, except as documented Neuro Reports no additional complaints Psych Reports no additional complaints Endo Reports no additional complaints Gee/Lymph Reports no additional complaints Aller/Immun Reports no additional complaints Physical exam (Primary Care) Vital Signs: Last Vital Signs Temp 98.1 F 12/03/24 09:43 Pulse 63 12/03/24 09:43 Resp 15 12/03/24 09:43 BP 110/74 12/03/24 09:43 Pulse Ox 97 12/03/24 09:43 Oxygen Delivery Method Room Air 12/03/24 09:43 BMI result Body Mass Index 34.2 Tobacco/Smoking Status: Tobacco use Status Tobacco use date assessed 12/03/24 12/03/24 09:45 Patient Tobacco Use Status Former Tobacco user 12/03/24 09:45 e-Cigarette/Vaping Use Never Used 12/03/24 09:45 PHQ-9: PHQ-9 Score PHQ-9: Total score 0 12/03/24 10:32 Depression Screening Interpretation: Negative Thrive Assessment: Date of Thrive Assessment Date Thrive assessed 12/03/24 12/03/24 09:45 Currently or been in a relationship where the following occur: I choose not to answer Advance Care Planning discussion: Completed/Scanned Date of discussion: 12/03/24 Who was present: Patient Forms completed: Health Care Proxy Time spent: 16-45 minutes Actual minutes spent: 3 Const General: comfortable and no acute distress Orientation/consciousness: patient oriented x3 HENMT Mouth: moist mucous membranes Eyes General: appearance normal, both eyes and all related structures Pupils: Equal, round and reactive pupils present EOM: EOMs intact bilaterally Neck Neck: Yes full ROM, Yes no lymphadenopathy and Yes supple Chest Breast/axilla inspection: normal inspection of the breasts Breast/axilla palpation: normal palpation of the breasts Resp Auscultation: clear to auscultation bilaterally Cardio Other: S1 and S2 present , regular rate and rhythm GI Palpation (GI): Soft to palpation, nontender and no guarding Auscultation: normal bowel sounds General: Yes no CVA tenderness and Yes deferred (Referred to [facility] [facility] patient request) Back/Spine/Pelvis Back: no CVA tenderness and No back tenderness Skin General skin exam: no rashes or lesions noted Neuro General: patient oriented x3, gait normal, moves all extremities, no focal motor deficits and CN's II-XI intact bilaterally Cranial nerves: Yes Equal, round and reactive pupils present Gait exam (Neuro): Normal gait present Extrem Other: Pain elicited on flexion abduction right hip joint General: Yes no joint enlargement, Yes no pedal edema and Yes normal gait Psych Appearance: grossly normal and well kempt Mental Status: mental status grossly normal Speech and movement: Normal speech and movement present Affect: normal affect Thought process: Normal thought process present Coding Level of Care Code Est Pt Prev Care 40-64y(54696) Diagnoses Annual visit for general adult medical examination with abnormal findings Z00. Immunity status testing Z01.84 Primary osteoarthritis of right hip M16.11 Osteoarthritis type: primary Class 2 severe obesity due to excess calories with serious comorbidity and body mass index (BMI) of 36.0 to 36.9 in adult E66.01; Z68.36 Body mass index: BMI 36.0-36.9 Obesity classification: adult class 2 (BMI 35 - 39.9) Obesity type: due to excess calories Serious obesity comorbidity presence: with serious comorbidity Impaired fasting glucose R73.01 Dyslipidemia E78.5 Advanced directives, counseling/discussion Z71.89 Additional Codes JOSE-7 Assessment Billing - JOSE-7 Assessment Tool: JOSE-7 Assessment 15370 ([id number]) PHQ-9 - 49665 - PHQ-9 Billing: Yes ([id number]) Vital Signs *Quality* - Advance Care Planning discussion: Completed/Scanned ([id number]) Vital Signs *Quality* - Time spent: 16-45 minutes ([id number]) Assessment & Plan Assessment & Plan (1) Annual visit for general adult medical examination with abnormal findings: Code(s): Z00.01 - Encounter for general adult medical examination with abnormal findings Plan: Advised to get her fasting labs done, already ordered. Continue ready dental visit every 6 months and regular eye exams, followed at the [facility] eye care by Dr. Oropeza. Take adequate calcium in diet and vitamin-D 3 at 2000 IU per cap once a day, in addition to weight-bearing exercises to help maintain good muscle tone and weight control. Instructed to do self-breast exam, and continue with yearly mammogram, currently up-to-date, referred to [facility] for routine Pap and pelvic exam, last Pap smear was done in 2019 with negative findings. Up-to-date with her screening colonoscopy not due again until 2031. Immunization up-to-date but has not yet had her shingles vaccine, varicella zoster IgG antibody ordered (2) Immunity status testing: Code(s): Z01.84 - Encounter for antibody response examination Category: Medical Plan: Ordered varicella zoster IgG antibody (3) Osteoarthritis of right hip: Code(s): M16.11 - Unilateral primary osteoarthritis, right hip Category: Medical Qualifiers: Osteoarthritis type: primary Qualified Code(s): M16.11 - Unilateral primary osteoarthritis, right hip Plan: Patient canceled her planned right hip replacement, wants to wait, has just been taking Tylenol arthritis for pain relief, seldom needing to take her meloxicam. (4) Obesity: Code(s): E66.9 - Obesity, unspecified Category: Medical Qualifiers: Body mass index: BMI 36.0-36.9 Obesity classification: adult class 2 (BMI 35 - 39.9) Obesity type: due to excess calories Serious obesity comorbidity presence: with serious comorbidity Qualified Code(s): E66.01 - Morbid (severe) obesity due to excess calories; Z68.36 - Body mass index [BMI] 36.0-36.9, adult Plan: Advised to try following a Mediterranean diet, stay active, start with gentle stretching exercises but has to be consistent with getting her exercise done, and following diet (5) Impaired fasting glucose: Code(s): R73.01 - Impaired fasting glucose Category: Medical Plan: Your previous fasting blood sugars were elevated above 100 mg/dL. Impaired glucose metabolism increases the risk for developing diabetes mellitus type 2, as well as heart attack and stroke later on. Lifestyle changes that promotes weight loss, healthy eating habits, and regular exercise are important, and can prevent the progression to diabetes (6) Dyslipidemia: Code(s): E78.5 - Hyperlipidemia, unspecified Category: Medical Plan: Fasting lipid panel ordered . Continue atorvastatin 40 mg daily , in addition to adherence to low-cholesterol diet and regular exercise, at least 30 minutes 3 to 4 times a week. Advised patient to make healthy food choices, eat more fruits, vegetables, whole grains, wild caught fish and low-fat dairy. Limit amount of meat and fried or fatty food products, as well as processed foods and fast foods. (7) Advanced directives, counseling/discussion: Code(s): Z71.89 - Other specified counseling Plan: Initiated the conversation about Advanced Directives. Advanced Directives help patients prepare for current and future decisions about their medical treatment and place of care. Discussed with patient that it is a process where a patients current condition and prognosis are reviewed, their wishes for information regarding their illness are elicited, and likely medical dilemmas are presented and options discussed. Healthcare proxy form completed today. The form can be amended as needed, reviewed yearly and make changes as needed Orders: Orders Varicella IgG Antibody Today Z01.84 - Encounter for antibody response examination Referrals IT SUPPORT TECHNICIAN Referral Z12.4 - Encounter for screening for malignant neoplasm of cervix
== END 2024-12-03 10:37 | disposition home or self-care (01) ==
LOC: HO.HMCC 09:41
PROVIDERS: PCP Internal Medicine; Visit Provider Internal Medicine
DX: Z00.01 Encounter for general adult medical examination with abnormal findings (principal); M16.11 Unilateral primary osteoarthritis, right hip; E66.01 Morbid (severe) obesity due to excess calories; Z68.36 Body mass index [BMI] 36.0-36.9, adult; R73.01 Impaired fasting glucose; E78.5 Hyperlipidemia, unspecified; Z71.89 Other specified counseling; Z00.00 Encounter for general adult medical examination without abnormal findings

== ENCOUNTER → 2024-12-03 09:40 | Outpatient (BNVA) | payer BC, SELFPAY | PROVIDERS: PCP Internal Medicine; Visit Provider Internal Medicine | DX: Z00.01 Encounter for general adult medical examination with abnormal findings (principal); M16.11 Unilateral primary osteoarthritis, right hip; E66.01 Morbid (severe) obesity due to excess calories; Z68.36 Body mass index [BMI] 36.0-36.9, adult; R73.01 Impaired fasting glucose; E78.5 Hyperlipidemia, unspecified; Z71.89 Other specified counseling | CPT/HCPCS: 96127 ==